=== PATIENT | male | born 1985 | race Caucasian/White ===

== ENCOUNTER 2022-01-21 19:00 | Emergency (ER) | payer BC, SELFPAY ==
[2022-01-21 19:11] VITALS: BP 133/99; PULSE 138; RESP 18; TEMP 36.4; O2SAT 99
[2022-01-21 19:31] VITALS: BP 149/104; PULSE 102; RESP 16; TEMP 36.6; O2SAT 98
[2022-01-21] MEDS: ONDANSETRON INJ 4 MG/2 ML VIAL IV PUSH (19:47)
[2022-01-21] MEDS: LORazepam INJ (*CRX) 2 MG/ML VIAL IV PUSH (19:51)
[2022-01-21 20:03] LABS: Basophils Percent Auto 0.5 % (0.2-1.2); Eosinophils Percent Auto 0.3 % (0-4.4); Hematocrit 50.2 % (42.0-52.0); Immature Granulocyte Absolute 0.02 K/mm3 (0.00-0.031); Immature Granulocyte Percent A 0.3 % (0-0.5); Lymphocytes Absolute Auto 3.59 K/mm3 (0.9-3.2); Lymphocytes Percent Auto 45.6 % (18.3-44.2); Mean Corpuscular HGB Conc 35.9 g/dl (32-36); Mean Corpuscular Hemoglobin 32.3 pg (26-34); Mean Platelet Volume 9.5 fl (7.4-10.4); Monocytes Absolute Auto 0.5 K/mm3 (0.1-0.6); Monocytes Percent Auto 6.2 % (2.6-8.5); Neutrophils Absolute Auto 3.7 K/mm3 (1.3-6.7); Neutrophils Percent Auto 47.1 % (45.5-73.1); Platelet Count Result 220 k/mm3 (150-375); Red Blood Count 5.58 M/mm3 (4.6-6.20); Red Cell Distribution Width 13.6 % (11.5-14.5); White Blood Count 7.9 K/mm3 (4.5-10.0)
[2022-01-21 20:10] LABS: Alanine Aminotransferase 78 U/L (4-50); Albumin Level 4.5 g/dL (3.5-5.1); Alkaline Phosphatase 117 U/L (38-126); Anion Gap 12 mmol/L (8-16); Aspartate Amino Transferase 78 U/L (17-59); Bilirubin,Total 0.5 mg/dL (0.2-1.3); Blood Urea Nitrogen 8 mg/dL (9-20); Calcium 8.4 mg/dL (8.4-10.2); Carbon Dioxide 25 mmol/L (22-30); Chloride 107 mmol/L (98-107); Estimated CRCL calculation 94 ml/min; Estimated Glomerular Filt Rate > 60; Glucose 108 mg/dL (65-110); Potassium 3.7 mmol/L (3.4-5.0); Sodium 144 mmol/L (137-145)
[2022-01-21 20:30] VITALS: BP 142/80; PULSE 80; RESP 16; TEMP 36.4; O2SAT 100
[2022-01-21] MEDS: SODIUM CHLORIDE 0.9% IV 1,000 ML 999 ML IV CONT (20:46)
[2022-01-21 21:00] LABS: Ethanol 220 mg/dL (<10)
[2022-01-21] MEDS: IBUPROFEN 400 MG TABLET PO (21:12)
[2022-01-21 21:30] VITALS: BP 152/90; PULSE 80; RESP 16; TEMP 37; O2SAT 98
--- NOTE | 2022-01-21 21:31 | ED.ALCOHOL ---
HPI - Alcohol General Chief Complaint: Alcohol Stated Complaint: Alcohol detox Time Seen by Provider: 01/21/22 19:38 Source: patient and RN notes reviewed History of Present Illness HPI narrative: 36-year-old male presented emerge department for evaluation of nausea and dehydration secondary to alcohol withdrawal. Patient states he drinks heavily and hands for for a significant period of time. Patient does have history of multiple stays and rehab. Patient states that he did drink alcohol today. Patient is complaining of nausea vomiting. Patient denies any prior history of seizures. Patient states he does go through alcohol withdrawal and that Librium has helped him in the past. Patient states he has attempted to call for placement but that places he has contacted our fall. I did call [facility] in [place] and they confirmed that they do not have any immediate availability. They did recommend that the patient continue to call to seek placement. Related Data Allergies Allergy/AdvReac Type Severity Reaction Status Date / Time No Known Allergies Allergy Unverified 09/09/13 18:48 Review of Systems Review of Systems: CONSTITUTIONAL: Denies fever, chills, or sweats. EYES: Denies visual changes, redness, or discharge. ENT: Denies rhinorrhea, congestion, sore throat, or otalgia. CARDIOVASCULAR: Denies chest pain, palpitations, or edema. RESPIRATORY: Denies cough or dyspnea. GASTROINTESTINAL: Denies abdominal pain. GENITOURINARY: Denies dysuria or hematuria. SKIN: Denies rash or itching. MUSCULOSKELETAL: Denies back pain, joint pain, or myalgia. NEUROLOGIC: Denies headache, numbness, or weakness. Exam Narrative: APPEARANCE: Well appearing, no pain, no distress, well-nourished. HEAD: normocephalic, atraumatic. EYES: PERRLA/EOMI, conjunctivae clear. NECK: Supple. No adenopathy, no masses. RESPIRATORY: Airway patent, respirations nonlabored. Clear to auscultation bilaterally, no rales, rhonchi, wheezing. CARDIOVASCULAR: Regular rate and rhythm without murmurs rubs or gallops. ABDOMINAL: Soft, nontender, nondistended, normal bowel sounds MUSCULOSKELETAL: Moves all extremities. Strength/ROM intact, No edema, No calf tenderness. NEURO: Alert. Cranial nerves II through XII intact. Good gait. Good coordination SKIN: Warm, dry. Normal Color PSYCHIATRIC: Normal affect/mood. Course Course Emergency Course: Patient improved with treatment in the emerge department. Patient continues to deny any suicidal or homicidal ideation. Patient is comfortable with the plan for discharge to home and he will continue to seek rehab placement. Care coordination consult was placed to potentially help the patient seek placement to rehab. Patient was instructed to have close follow-up with his primary care physician and was instructed to return to the emergency department if he had any worsening symptoms questions or concerns. Patient was stable at time of discharge from emergency department. Vital Signs Vital signs: Vital Signs Temperature 97.5 F L 01/21/22 19:11 Pulse Rate 138 H 01/21/22 19:11 Respiratory Rate 18 01/21/22 19:11 Blood Pressure 133/99 H 01/21/22 19:11 Pulse Oximetry 99 01/21/22 19:11 Temperature 98.6 F 01/21/22 21:30 Pulse Rate 80 01/21/22 21:30 Respiratory Rate 16 01/21/22 21:30 Blood Pressure 152/90 H 01/21/22 21:30 Pulse Oximetry 98 01/21/22 21:30 MDM - Alcohol Differential Diagnosis Differential diagnosis: Likely alcohol intoxication and alcohol withdrawal syndrome Lab Data Attestation: I reviewed the patient's lab results. Result diagrams: 01/21/22 19:55 01/21/22 19:55 Labs: Lab Results 01/21/22 01/21/22 01/21/22 Range/Units 19:55 19:55 19:55 WBC 7.9 (4.5-10.0) K/mm3 RBC 5.58 (4.6-6.20) M/mm3 Hgb 18.0 (14.0-18.0) g/dL Hct 50.2 (42.0-52.0) % MCV 90.0 (80-100) fl MCH 32.3 (26-34) pg MCHC 35.9 (32-36) g/dl RDW 13.6 (11.5-1
[2022-01-21] MEDS: LORazepam (*CRX) 1 MG TABLET PO (22:04)
== END 2022-01-21 22:15 | disposition home or self-care (01) ==
PROVIDERS: Emergency Provider Emergency Medicine
DX: F10.129 Alcohol abuse with intoxication, unspecified (principal); Y90.7 Blood alcohol level of 200-239 mg/100 ml
CPT/HCPCS: 36415; 80053; 80307; 85025; 96361; 96374; 96375; 99284; A9270; J2060; J2405; J7030

== ENCOUNTER 2023-06-21 14:19 | Emergency (ER) | payer BC, SELFPAY ==
--- NOTE | 2023-06-21 14:20 | ED.EAR ---
HPI - Ear Problem General Chief complaint: Upper Respiratory Infection Stated complaint: right ear pain Time Seen by Provider: 06/21/23 14:36 Source: patient and RN notes reviewed Mode of arrival: ambulatory Limitations: no limitations History of Present Illness HPI Narrative: 37-year-old male presents with concern for right ear pain that radiates to his neck. Reports symptoms started on . He reports sore throat and nasal congestion that also started on . He denies drainage from the ear. Reports he took Tylenol and tramadol. MD Complaint: ear pain Related Data Home Medications Medication Instructions Recorded Confirmed aripiprazole 5 mg tablet mg 06/21/23 buspirone 7.5 mg tablet mg 06/21/23 Allergies Allergy/AdvReac Type Severity Reaction Status Date / Time No Known Allergies Allergy Unverified 06/21/23 14:47 Review of Systems Review of Systems: CONSTITUTIONAL: Denies malaise, chills, sweats, or fever. EYES: Denies visual changes, redness, or discharge. ENT: Reports rhinorrhea, congestion, right ear pain, sore throat. CARDIOVASCULAR: Denies chest pain, palpitations, or edema. RESPIRATORY: Denies cough. Denies dyspnea. GASTROINTESTINAL: Denies abdominal pain, nausea, vomiting, diarrhea SKIN: Denies rash or itching. MUSCULOSKELETAL: Denies myalgia. NEUROLOGIC: Denies headache. All systems reviewed & are unremarkable except as noted in HPI and below PMFSH Comments At time of signature, agree with nursing past medical, surgical, social and family history. There is no relevant family history pertinent to the presenting complaint Exam Narrative: GENERAL: Well-appearing, well-nourished, and in no acute distress. HEAD: Normocephalic EYES: PERRLA, conjunctivae clear ENT: Nares clear, turbinates edematous, clear discharge. Mucous membranes moist. TM pearly cassidy with dull light reflex bilaterally; no tragal tenderness. Oropharynx not erythematous without lesions. Tonsils not enlarged and without exudate, no drooling, no hoarseness, no trismus, uvula midline. NECK: Supple. No lymphadenopathy CHEST: Clear to auscultation, breath sounds equal. No wheezing, rhonchi, rales, or stridor. No respiratory distress, speaks in full sentences. HEART: Regular rate and rhythm. No murmur heard. SKIN: Warm, dry, no rash. NEURO: Alert and oriented x3. PSYCH: Normal mood and affect Course Course Emergency Course: Patient is aware of diagnosis, understands and agrees to treatment plan. Anticipatory guidance given. Patient agrees to follow-up as directed and is aware of reasons to seek care at the emergency department. Portions of this record may have been created with voice recognition software Level of Care: Express Care Visit Vital Signs Vital signs: Vital Signs Temperature 96.4 F L 06/21/23 14:31 Pulse Rate 101 H 06/21/23 14:31 Respiratory Rate 16 06/21/23 14:31 Blood Pressure 113/72 06/21/23 14:31 Pulse Oximetry 97 06/21/23 14:31 Oxygen Delivery Room Air 06/21/23 14:31 Temperature 96.4 F L 06/21/23 14:31 Pulse Rate 101 H 06/21/23 14:31 Respiratory Rate 16 06/21/23 14:31 Blood Pressure 113/72 06/21/23 14:31 Pulse Oximetry 97 06/21/23 14:31 Oxygen Delivery Room Air 06/21/23 14:31 Reviewed. Medical Decision Making MDM Narrative Medical decision making narrative: Differential diagnosis considered: Hogan virus, strep pharyngitis, allergic rhinitis, upper respiratory tract infection, sinusitis, rhinosinusitis, nasopharyngitis. viral pharyngitis, otitis media, otitis externa, otitis effusion, cerumen impaction, foreign body. Exam findings show no acute concerns or changes; patient is non-toxic appearing and is in no distress. Patient is appropriate for outpatient treatment and follow-up. Vital Signs Vital Signs: Vital Signs Temperature 96.4 F L 06/21/23 14:31 Pulse Rate 101 H 06/21/23 14:31 Respiratory Rate 16 06/21/23 14:31 Blood Pressur
[2023-06-21 14:31] VITALS: BP 113/72; PULSE 101; RESP 16; TEMP 35.8; O2SAT 97
== END 2023-06-21 15:12 | disposition home or self-care (01) ==
PROVIDERS: Emergency Provider Nurse Practitioner; PCP Family Medicine
DX: J06.9 Acute upper respiratory infection, unspecified (principal); H92.01 Otalgia, right ear; F32.A Depression, unspecified
CPT/HCPCS: 87081; 87880; 99213; G0463